=== PATIENT | male | born 1965 ===

== ENCOUNTER 2023-01-09 09:25 | Emergency (ER) | payer BC, SELFPAY ==
--- NOTE | 2023-01-09 | ECG_ITS ---
Test Reason : chest tightness Blood Pressure : / mmHG Vent. Rate : 083 BPM Atrial Rate : 083 BPM P-R Int : 152 ms QRS Dur : 096 ms QT Int : 386 ms P-R-T Axes : -01 -34 -02 degrees QTc Int : 453 ms Normal sinus rhythm Left axis deviation Abnormal ECG No previous ECGs available Referred By: Generic ED Physician Electronically Signed By:ANNIKA SUGGS
[2023-01-09 09:31] VITALS: BP 171/109; PULSE 80; RESP 20; TEMP 35.9; O2SAT 100; BMI 28.6
[2023-01-09 10:02] LABS: MANUAL DIFF FLAG NO
[2023-01-09 10:04] LABS: Basophils Percent Auto 0.4 % (0-2); Eosinophils Percent Auto 0.6 % (0-4); Hemoglobin 16.6 g/dl (14.0-18.0); Imm Gran Abs Auto 0.03 X10*3/uL (0.00-0.03); Imm Gran Pct Auto 0.4 % (0.0-0.4); Lymphocytes Absolute Auto 1.8 X10*3/uL (1.2-4.9); Lymphocytes Percent Auto 26.1 % (20-40); Mean Corpuscular HGB Conc 36.9 g/dl (31.0-36.0); Mean Corpuscular Hemoglobin 33.7 pg (27.0-33.0); Mean Corpuscular Volume 91.3 fL (80.0-98.0); Mean Platelet Volume 10.2 fL (9.4-12.4); Monocytes Absolute Auto 0.5 X10*3/uL (0.1-1.2); Monocytes Percent Auto 7.4 % (2-11); Neutrophils Absolute Auto 4.6 x10*3/uL (2.0-8.3); Neutrophils Percent Auto 65.1 % (45-73); Platelet Count 159 X10*3/uL (160-400); Red Blood Count 4.93 X10*6/uL (4.60-5.80); Red Cell Distribution Width 11.6 % (11.0-16.0); White Blood Count 7.1 X10*3/uL (4.8-10.8)
--- OUTSIDE RECORDS SUMMARY | 2023-01-09 10:17 | XMS_ITS ---
Author Name Jani Turner e Address [address] [place] [address] [place] [address] Organization [facility] Address [address] [address] Care Team Providers Care Mold Blower Name Role Phone Lillian Turner Unavailable [phone] PROBLEMS Type Condition ICD9-CM Code YTQ38-XQ Code Onset Dates Condition Status SNOMED Code Problem Anogenital herpesviral infection, unspecified A60.9 Active 079834596 Problem Pure hyperglyceridemia E78.1 Active 976177584 Problem Abnormal results of liver function studies R94.5 Active 176379861 Problem Diseases of lips K13.0 Active 3835084 9 Problem Raynaud's disease without gangrene I73.00 Active 844591688 Problem Polymyalgia M35.3 Active 97832613 Problem Hyperlipidemia, unspecified E78.5 Active 04544517 Problem Gastro-esophageal reflux disease without esophagitis K21.9 Active 18688238 5 Problem Other chronic pain G89.29 Active 92739 001 Problem Fusion of spine, lumbar region M43.26 Active 26951320 Problem Family history of coronary artery disease Z82.49 Active 343357093 Problem Mixed hyperlipidemia E78.2 Active 267 593185 Problem Essential hypertension I10 Active 08920872 Problem 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 Active 611358984 Problem Hypertriglyceridemia , essential 272.1 Active 621966317 Problem Palpitation 785.1 Active 22179581 Problem Shoulder pain 719.41 Active 07249125 Problem Allergic rhinitis, unspecified seasonality, unspecified trigger J30.9 Active 78635178 Problem Pancreatic cyst K86.2 Active 89951761 Problem Facial paresthesia R20.2 Active 18454 007 Problem High risk heterosexual behavior Z72.51 Active 275639392584290 Problem Dorsalgia, unspecified M54.9 Active 823918415 Problem Acute right-sided low back pain with right-sided sciatica M54.41 Active 3626105 5 Problem Fluttering sensation of heart R00.2 Active 24813878 Problem Diverticulitis K57.92 Active 63211335 Problem Diverticulitis of large intestine without perforation or abscess without bleeding K57.32 Active 750756147 ALLERGIES No Known Allergies ENCOUNTERS Encounter Location Date Diagnosis [facility] [address] [place] [address] 08 Nov, 2022 High risk homosexual behavior Z72.52 [facility] [address] [place] [place] [address] November, High risk homosexual behavior Z72.[address] [address] Oct, Facial paresthesia R20.2 and Allergic rhinitis, unspecified seasonality, unspecified trigger J30.9 [facility] [place] [address] Sep, [facility] [address] [place] [address] Sep, Other chest pain R07.89 ; Essential hypertension I10 ; Family history of coronary artery disease Z82.49 ; Mixed hyperlipidemia E78.2 ; Fluttering sensation of heart R00.2 ; Palpitation R00.2 and Lightheaded R42 [facility] [address] [place] [address] Sep, [address] [address] Sep, [address] [address] Sep, [address] [address] Aug, [facility] [address] [place] [place] [address] May, [facility] [address] [place] [place] [address] May,2 High risk homosexual behavior Z72.52 [facility] [address] [place] [address] 28 Apr, 2022 Pure hyperglyceridemia E78.1 [facility] [address] [place] [address] 27 Apr, 2022 [facility] [address] [place] [address] 24 Apr, [address] [address] 20 Apr, [address] [address] 13 Apr, 2022 Encounter for immunization Z23 and Diverticulitis of large intestine without perforation or abscess without bleeding K57.32 [facility] [address] [place] [address] Mar, Other chest pain R07.89 ; Essential hypertension I10 ; Family history of coronary artery disease Z82.49 ; Mixed hyperlipidemia E78.2 ; Fluttering sensation of heart R00.2 and Palpitation R00.[address] [address] 20 Dec, [address] [address] 03 Dec, [address] [address] November, Acute right-sided low back pain with right-sided sciatica M54.41 and Fusion of spine, lumbar region M43.[address] [address] November, [address] [address] November, [address] [address] November, [address] [address] 26 Oct, 2021 Fusion of spine, lumbar region M43.26 [facility] [address] [place] [place] [address] Oct, [facility] [address] [place] [address] Oct, [facility] [address] [place] [place] [address] 22 Oct, 2021 [facility] [address] [place] [place] [address] 07 Sep, 2021 [facility] [address] [place] [place] [address] 07 Sep, 2021 [facility] [address] [place] [place] [address] 07 Sep, 2021 High risk homosexual behavior Z72.52 [facility] [address] [place] [place] [address] Sep, High risk heterosexual behavior Z72.[address] [address] 23 Jun, [address] [address] 10 Jun, [address] [address] 06 Jun, [address] [address] 16 May, 2021 Injury of right shoulder, initial encounter S49.91XA ; Acute pain of right shoulder M25.511 and Encounter for immunization Z23 [address] [address] 15 May, 2021 Injury of right shoulder, initial encounter S49.91XA [facility] [address] [place] [place] [address] 13 Mar, 2021 [facility] [address] [place] [place] [address] [place] [address] 09 Mar, 2021 [facility] [address] [place] [address] 09 Mar, 2021 High risk homosexual behavior Z72.[address] [address] 20 Feb, 2021 Head congestion R09.81 and Body aches R52 [address] [address] Feb, [facility] [address] [place] [address] 18 Dec, 2020 Other chest pain R07.89 ; Essential hypertension I10 ; Family history of coronary artery disease Z82.49 and Mixed hyperlipidemia E78.[address] [facility] [address] [place] [address] [place] [address] 30 Oct, [address] [facility] [address] [place] [address] Oct, [facility] [address] [place] [place] [address] 29 Oct, 2020 High risk homosexual behavior Z72.52 [facility] [address] [place] [place] [address] 26 Oct, [address] [address] Oct, [facility] [address] [place] [address] 08 Oct, [address] [address] 03 Oct, 2020 Acute bronchitis, unspecified organism J20.[address] [address] 02 Sep, 2020 Polyarthralgia M25.50 ; Raynaud's disease without gangrene I73.00 ; Dry mouth R68.2 and Polymyalgia M35.[address] [address] Aug, [address] [address] 28 Jul, 2020 Polyarthralgia M25.50 and Mixed hyperlipidemia E78.[address] [address] 25 Jul, [address] [facility] [address] [place] [place] [address] 14 Jul, [address] [facility] [address] [place] [address] 14 Jul, 2020 High risk homosexual behavior Z72.52 [facility] [address] [place] [place] [address] 08 Jul, [address] [facility] [address] [place] [place] [address] 08 Jul, [address] [facility] [address] [place] [place] [address] 08 Jul, 2020 [facility] [address] [place] [place] [address] 06 Jul, [address] [address] Jun, Polyarthralgia M25.50 ; Pain in axilla, unspecified laterality M79.629 ; Gastro-esophageal reflux disease without esophagitis K21.9 and Dorsalgia, unspecified M54.9 [facility] [address] [place] [address] Jun, Other chest pain R07.89 ; Essential hypertension I10 ; Family history of coronary artery disease Z82.49 and Mixed hyperlipidemia E78.[address] [address] Jun, Diarrhea, unspecified type R19.7 [facility] [address] [place] Mar, [facility] [address] [place] Mar, [address] [address] Mar, Sore throat J02.9 and Acute nonintractable headache, unspecified headache type R51 [address] [address] Feb, Routine medical exam Z00.00 ; Screening for malignant neoplasm of prostate Z12.5 ; Gastro-esophageal reflux disease without esophagitis K21.9 ; Mixed hyperlipidemia E78.2 ; Family history of coronary artery disease Z82.49 and High risk heterosexual behavior Z72.51 [facility] [address] [place] [address] Dec, Other chest pain R07.89 ; Essential hypertension I10 ; Family history of coronary artery disease Z82.49 and Mixed hyperlipidemia E78.[address] [facility] [address] [place] [place] [address] Dec, [facility] [address] [place] [place] [address] November, Internal [address] [place] [address] November, High risk homosexual behavior Z72.52 [facility] [address] [place] [place] [address] Oct, High risk homosexual behavior Z72.[address] [place] [address] Aug, [address] [place] [address] Apr, [facility] [address] [place] [place] [address] Apr, [facility] [address] [place] [place] [address] Apr, High risk homosexual behavior Z72.52 [facility] [address] [place] [place] [address] Mar, [facility] [address] [place] [address] Mar, [facility] [address] [place] [address] Feb, Essential hypertension I10 ; Family history of coronary artery disease Z82.49 and Mixed hyperlipidemia E78.[address] [address] Oct, [facility] [address] [place] [place] [address] Oct, High risk homosexual behavior Z72.[address] [address] Oct, Routine medical exam Z00.00 ; Screening for malignant neoplasm of prostate Z12.5 ; Essential hypertension I10 ; Mixed hyperlipidemia E78.2 ; Abnormal results of liver function studies R94.5 ; Gastro-esophageal reflux disease without esophagitis K21.9 and Acute bronchitis, unspecified organism J20.[address] [address] Sep, Acute bronchitis, unspecified organism J20.9 and Upper respiratory tract infection, unspecified type J06.[address] [address] Sep, Fever, unspecified fever cause R50.[address] [address] Jul, [facility] [address] [place] [address] Apr, [address] [address] Apr, [facility] [address] [place] [place] [address] Apr, High risk homosexual behavior Z72.[address] [address] Apr, Dorsalgia, unspecified M54.9 ; Essential hypertension I10 ; Mixed hyperlipidemia E78.2 and Left lower quadrant pain R10.32 [facility] [address] [facility] [place] [address] Apr, [address] [address] Mar, [facility] [address] [place] [address] Feb, Essential hypertension I10 ; Family history of coronary artery disease Z82.49 and Mixed hyperlipidemia E78.2 [facility] [address] [place] [place] [address] Feb, [address] [address] Feb, [address] [address] Feb, [address] [address] Feb, [facility] [address] [place] [place] [address] Oct, High risk homosexual behavior Z72.[address] [address] Jun, [address] [address] Apr, [facility] [address] [place] [address] Apr, [facility] [address] [place] [place] [address] Apr, [facility] [address] [place] [address] Apr, [facility] [address] [place] [place] [address] Apr, [facility] [place] [address] Feb, [address] [address] November, [facility] [address] [place] [address] Oct, [place] [address] Oct, [facility] [address] [place] [address] Oct, [facility] [address] [address] Aug, [facility] [address] [place] [address] Jun, [facility] [address] [facility] [place] [address] Jun, [address] [address] May, [facility] [address] [address] Apr, [facility] [address] [place] [address] Apr, [address] [address] Apr, [address] [address] Feb, [address] [address] Jan, [facility] [address] [address] Oct, [facility] [address] [address] Sep, [address] [address] Aug, [facility] [place] [address] Aug, [facility] [address] [address] May, [facility] [address] [place] [address] Apr, [address] [address] Apr, [facility] [address] [place] [address] Feb, [facility] [address] [address] Jan, [address] [address] Oct, [facility] [address] [place] [address] Oct, [facility] UNKNOWN Sep, [address] [address] Sep, [facility] UNKNOWN Jul, [facility] UNKNOWN Jul, UR I 465.9 and Wheezing 786.07 [facility] UNKNOWN Jul, [facility] UNKNOWN Jun, [facility] UNKNOWN Jun, AB DMNAL PAIN LFT UP QUAD 789.02 [facility] UNKNOWN Jun, Sh oulder pain 719.41 ; Palpitation 785.1 ; Hypertriglyceridemia, essential 272.1 ; ELEV TRANSAMINASE/LDH 790.4 and Venous lakes 437.8 [facility] UNKNOWN May, IMMUNIZATIONS Vaccine Route Administration Date Status Pfizer Covid Booster Bivalent (12+) Unknown May 262021 Administered Influenza (FluLaval) 0.5 mL (Private supply) IM Intramuscular May 05, 2022 Administered Influenza (FluLaval) 0.5 mL (Private supply) IM Intramuscular Jun 08, 2021 Administered Influenza, unspecified formu lation (Outside source) Unknown May 04, 2018 Administered Tdap Unknown September 22, 2022 Administered Tdap Unknown November 18, 2014 Administered SOCIAL HISTORY Qualifiers Date Former Smoker 33 REASON FOR REFERRAL FUNCTIONAL STATUS PLAN OF CARE Activity Details VITAL SIGNS Temperature 97.7 degrees Fahrenheit Temperature 97.6 degrees Fahrenheit Temperature 98.4 degrees Fahrenheit Temperature 98.8 degrees Fahrenheit Temperature 97.6 degrees Fahrenheit Temperature 97.9 degrees Fahrenheit Temperature 97.6 degrees Fahrenheit Temperature 98.7 degrees Fahrenheit Temperature 97.5 degrees Fahrenheit Temperature 97.8 degrees Fahrenheit Heart Rate 62 /min 2022-11-28 Heart Rate 70 /min 2022-11-17 Heart Rate 60 /min 2022-09-29 Heart Rate 72 /min 2022-09-21 Heart Rate 70 /min 2022-05-30 Heart Rate 64 /min 2022-05-05 Heart Rate 70 /min 2022-04-15 Heart Rate 67 /min 2021-12-21 Heart Rate 58 /min 2021-09-27 Heart Rate 62 /min 2021-06-08 Heart Rate 68 /min 2021-01-08 Heart Rate 66 /min 2020-09-22 Heart Rate 78 /min 2020-08-20 Heart Rate 80 /min 2020-07-14 Heart Rate 64 /min 2020-07-10 Heart Rate 60 /min 2020-03-10 Heart Rate 82 /min 2019-05-16 Heart Rate 64 /min 2019-03-08 Heart Rate 60 /min 2018-11-12 Heart Rate 60 /min 2018-11-12 Heart Rate 77 /min 2018-10-19 Heart Rate 76 /min 2018-10-17 Heart Rate 66 /min 2018-05-17 Heart Rate 70 /min 2018-05-14 Heart Rate 66 /min 2018-03-21 Heart Rate 64 /min 2016-11-25 Heart Rate 59 /min 2016-10-31 Heart Rate 67 /min 2016-10-27 Heart Rate 68 /min 2016-05-27 Heart Rate 58 /min 2016-05-09 Heart Rate 64 /min 2016-05-06 Heart Rate 80 /min 2016-03-11 Heart Rate 64 /min 2016-02-02 Heart Rate 63 /min 2015-11-19 Heart Rate 63 /min 2015-09-22 Heart Rate 61 /min 2015-09-11 Heart Rate 57 /min 2015-05-28 Heart Rate 70 /min 2015-05-11 Heart Rate 72 /min 2015-05-11 Heart Rate 86 /min 2015-03-06 Heart Rate 61 /min 2015-02-05 Heart Rate 60 /min 2014-11-18 Heart Rate 76 /min 2014-10-17 Weight 209 lbs 2022-11-28 Weight 211 lbs 2022-11-17 Weight 212 lbs 2022-09-29 Weight 207 lbs 2022-05-30 Weight 209 lbs 2022-05-05 Weight 213 lbs 2022-04-15 Weight 211 lbs 2021-12-21 Weight 205 lbs 2021-09-27 Weight 204 lbs 2021-06-08 Weight 209 lbs 2021-01-08 Weight 214 lbs 2020-09-22 Weight 217 lbs 2020-08-20 Weight 217 lbs 2020-07-14 Weight 218 lbs 2020-07-10 Weight 205 lbs 2020-03-10 Weight 206 lbs 2020-01-08 Weight 207 lbs 2019-05-16 Weight 202 lb 2 oz lbs 2019-03-08 Weight 208 lbs 2018-11-12 Weight 208 lbs 2018-11-12 Weight 204 lbs 2018-10-19 Weight 214 lbs 2018-05-17 Weight 214 lbs 2018-05-14 Weight 206 lbs 2018-03-21 Weight 205 lbs 2016-11-25 Weight 208 lbs 2016-10-31 Weight 198.03 lbs 2016-10-27 Weight 208 lbs 2016-05-27 Weight 208.03 lbs 2016-05-09 Weight 209 lbs 2016-05-06 Weight 205 lbs 2016-03-11 Weight 201 lbs 2016-02-02 Weight 203 lbs 2015-11-19 Weight 198 lbs 2015-09-22 Weight 203 lbs 2015-09-11 Weight 206 lbs 2015-05-28 Weight 204.03 lbs 2015-05-11 Weight 204 lbs 2015-05-11 Weight 203.03 lbs 2015-03-06 Weight 203 lbs 2015-02-05 Weight 203 lbs 2014-11-18 Weight 201 lbs 2014-10-17 Weight 202 lbs 2014-06-23 BMI 29.56 kg/m2 2022-11-28 BMI 29.84 kg/m2 2022-11-17 BMI 29.99 kg/m2 2022-09-29 BMI 29.28 kg/m2 2022-05-30 BMI 29.56 kg/m2 2022-05-05 BMI 30.13 kg/m2 2022-04-15 BMI 29.84 kg/m2 2021-12-21 BMI 28.85 kg/m2 2021-06-08 BMI 29.56 kg/m2 2021-01-08 BMI 30.27 kg/m2 2020-09-22 BMI 30.69 kg/m2 2020-08-20 BMI 30.69 kg/m2 2020-07-14 BMI 30.83 kg/m2 2020-07-10 BMI 29.00 kg/m2 2020-03-10 BMI 29.14 kg/m2 2020-01-08 BMI 29.28 kg/m2 2019-05-16 BMI 28.59 kg/m2 2019-03-08 BMI 29.42 kg/m2 2018-11-12 BMI 29.42 kg/m2 2018-11-12 BMI 28.85 kg/m2 2018-10-19 BMI 30.27 kg/m2 2018-05-17 BMI 30.27 kg/m2 2018-05-14 BMI 29.14 kg/m2 2018-03-21 Height 70.5 in 2022-11-28 Height 70.5 in 2022-11-17 Height 70.5 in 2022-09-29 Height 70.5 in 2022-09-21 Height 70.5 in 2022-05-30 Height 70.5 in 2022-05-05 Height 70.5 in 2022-04-15 Height 70.5, 70.5 in 2021-12-21 Height 70.5, 70.5 in 2021-09-27 Height 70.5 in 2021-06-08 Height 70.5 in 2021-01-08 Height 70.5 in 2020-09-22 Height 70.5 in 2020-08-20 Height 70.5 in 2020-07-14 Height 70.5 in 2020-07-10 Height 70.5 in 2020-03-10 Height 70.5 in 2020-01-08 Height 70.5 in 2019-05-16 Height 70.5 in 2019-03-08 Height 70.5 in 2018-11-12 Height 70.5 in 2018-11-12 Height 70.5 in 2018-10-19 Height 70.5 in 2018-10-17 Height 70.5 in 2018-05-17 Height 70.5 in 2018-05-14 Height 70.5 in 2018-03-21 Height 70.5 in 2016-11-25 Height 70.5 in 2016-10-31 Height 71.000 in 2016-10-27 Height 70.5 in 2016-05-27 Height 71.000 in 2016-05-09 Height 70.5 in 2016-05-06 Height 70.5 in 2016-03-11 Height 70.5 in 2016-02-02 Height 70.5 in 2015-11-19 Height 70.5 in 2015-09-22 Height 70.5 in 2015-09-11 Height 70 in 2015-05-28 Height 70 in 2015-05-11 Height 71.000 in 2015-03-06 Height 70 in 2015-02-05 Height 70 in 2014-11-18 Height 70.25 in 2014-10-17 Respiratory Rate 16 /min 2018-10-19 Oximetry 98 % 2022-11-28 Oximetry 99 % 2022-11-17 Oximetry 97 % 2022-05-30 Oximetry 98 % 2022-05-05 Oximetry 98 % 2021-12-21 Oximetry 98 % 2021-09-27 Oximetry 99 % 2021-06-08 Oximetry 100 % 2020-09-22 Oximetry 99 % 2020-08-20 Oximetry 99 % 2020-07-14 Oximetry 97 % 2020-03-10 Oximetry 97 % 2018-11-12 Oximetry 97 % 2018-10-19 Oximetry 97 % 2018-10-17 Oximetry 100 % 2018-05-14 Oximetry 99 % 2015-05-28 Blood pressure systolic 110 mm Hg Blood pressure diastolic 80 mm Hg 2022-11 MEDICATIONS Medication Instructions Dosage Frequency Start Date End Date Duration Status Emtricitabine-Te nofovir DF 200-300 MG TAKE 1 TABLET BY MOUTH ONCE DAILY 90 Active valACYclovir HCl 500 MG Orally Once a day 1 tablet 24h 30 Active Multivitamin Act adiel Atorvastatin Calcium 20 MG Orally Once a day 1 tablet 24h Apr, 90 days Active Losartan Potassium 25 MG Orally Once a day 1 tablet 24h 09 Sep, 2022 30 day(s) Active Fish Oil 1000 MG Orally Once a day 1 capsule 24h 30 day(s) Active tiZANidine HCl 4 MG Orally Once a day 1 tablet as needed 24h Active Omeprazole 40 MG TAKE ONE CAPSULE BY MOUTH ONCE DAILY 90 Active PROCEDURES Procedure Date Ordered Result Body Site FLU VAC NO PRSV 4 LAURITA .5ML May 05, 2022 FLU VAC NO PRSV 4 LAURITA .5ML Jun 08, 2021 INFLUENZA ASSAY W/OPTIC October 17, 2018 RESULTS Name Result Date Reference Range Chlamydia-GC swab RNA, TMA, Rectal 2022-11-21 Chlamydia-GC swab RNA, TMA, Throat 2022-11-21 Surgical Pathology Order Rcvd 2022-11-21 Case Number path Final Report See Reference Report Path Report Comment This is not the diag nostic report, please see separate Pathology Report. Report To Chlamydia/Gonorrhea Only (No Pap) 2022-11-21 Gonorrhea/Chlamydia Results: Neisseria gonorrhoeae not detected Chlamydia trachomatis not detected [id number] ICD9 Codes: CPT Codes: 05668i8, 47154m1 Thyroid Stimulating Hormone w/Reflex 2022-11-17 TSH 3.040 0.500-4.70 CRP (C-Reactive Protein) 2022-11-10 CRP 6.2 <=10.0 Sedimentation Rate 2022-11-10 ESR 5 <=20 Test Site [place] [facility] MRI BRAIN WO and W/BRO [id number] 2022-11-10 Urinalysis, Routine 2022-11-09 Color Yellow Clarity Clear Glucose Negative NEGATIVE Bilirubin Negative NEGATIVE Ictotest Not Indicated NEGATIVE Ketones Negative NEGATIVE SG 1.010 1.001-1.03 pH 7.5 4.6-8.0 Protein Negative NEGATIVE Urobil. 0.2 0.2-1.0 Nitrite Negative NEGATIVE Blood Negative NEGATIVE Leukocytes Negative NEGATIVE UA/Micro N/I N/I Color Inf. NO NO Test [facility] Anaplasma DNA, Qual. Real-Ti me PCR 2022-11-09 A.phagocytophilum,DNA,PCR Not Detected No t Detect Babesia microti DNA, Real-Ti me PCR 2022-11-09 Babesia microti DNA,PCR Not Detected Not Detect Blood Parasite Smear Examination 2022-11-09 BP Smear NONE SEEN NONE SEEN Parasite ID: None Seen Interp. INTERPRETATION of th e RESULT ABOVE None Seen: No Blood Parasites Seen Parasite Seen: Presumptive parasite seen, sent for confirmation & identification Confirm: Preliminary results confirmed by 2nd technologist. % Parasitemia BP Interpretation Babesia microti (RBC parasite), Anaplasma phagocytophilum & Ehrlichia chaffeensis (intracellular bacteria). Parasites may not be seen in an early course of the disease. PCR testing is available. Test Site [place] [facility] CBC AUTO DIFF (REFLEX TO MANUAL) 2022-11-09 WBC 5.61 4.80-10.80 RBC 4.44 4.60-6.20 HGB 15.0 14.0-18.0 HCT 41.4 42.0-52.0 MCV 93.2 80.0-94.0 MCH 33.8 27.0-31.0 MCHC 36.2 32.0-36.0 PLT 144.0 150.0-450. RDW-CV 11.9 9.9-14.5 ABS NEUT 3.6 1.8-8.6 ABS LYMPH 1.6 0.5-5.4 ABS MONO 0.4 0.0-1.3 ABS EOS 0.0 0.0-0.8 ABS BASO 0.0 0.0-0.3 ABS IG 0.00-0.10 NEUT % 64.20 37.00-80.0 LYMPH % 27.80 10.00-50.0 MONO % 7.10 0.01-12.00 EOS % 0.70 0.01-7.00 BASO % 0.20 0.01-2.50 IG% 0.0-1.0 RBC Morph. NORMAL RBC Incl. WBC Morph NORMAL PLT Est. NORMAL PLT Morph NORMAL Test Site [facility] Comprehensive Metabolic Panel(CMP) 2022-11-09 Glucose 101 65-100 BUN 13 7-23 Creatinine 0.80 0.66-1.25 BUN/Creat 16.3 7.0-25.0 Sodium 137 137-145 Potassium 4.3 3.6-5.0 Chloride 101 98-107 CO2 30 22-30 Anion Gap 6.0 5.0-15.0 Calcium 8.7 8.4-10.6 Tot.Prot. 6.8 6.3-8.2 Albumin 4.5 2.6-5.2 A/G Ratio 2.0 1.1-1.8 Alk Phos 70 38-126 AST 40 15-40 ALT 53 <=49 Bilirubin 1.1 0.2-1.3 eGFR >=60 >=60 Comment The MDRD study equat ion has not been validated in children < 18 yrs and pts. If , multiply result by 1.21. Test Site [place] [facility] Lyme -B.Burgdorferi Ab Rflx To Wb 2022-11-09 Lyme Ab Screen <0.90 SEE BELOW POC Glucose, Random 2022-11-09 Glucose 99 65-100 Prothrombin Time (with INR) 2022-11-09 PT 12.8 11.6-14.6 INR 0.95 0.85-1.15 PT INR Ther ACCP, 2004 Recommend ations for oral anticoagulant therapy: Low Intensity 1.50 - 2.00 INR Mod Intensity 2.00 - 3.00 INR High Intensity 2.50 - 3.50 INR or High Intensity 3.00 - 4.00 INR Test Site [place] [facility] Partial Thromboplastin Time (aPTT) 2022-11-09 aPTT 30.7 23.5-35.4 PTT Interp aPTT therapeutic ran for monitoring patients on unfractionated Heparin: aPTT 66 sec to 104 sec Comment In children between the ages of 2 and 18, a PTT may be elevated for reasons other than coagulopathy. Test Site [place] [facility] Troponin I 2022-11-09 Trop. I <0.012 <=0.034 Ref. Range Normal < 0.034 ng/ml Diagnostic >= 0.120 ng/ml Test Site [facility] MRI BRAIN W/O BRO [id number] 2022-11-09 CHEST PA AND LAT (2) VIEWS [id number] 2022-11-[address] [facility] STROKE PART 2: CTA HEAD/NECK [id number], [id number] 2022-11-[address] [facility] STROKE PART 1: PRE-ANGIO HEAD CT 2022-11-09 LDL Direct ([facility]) 2022-10-21 Direct LDL 56 SEE BELOW CBC AUTO DIFF (REFLEX TO MANUAL) 2022-10-21 WBC 4.15 4.80-10.80 RBC 4.48 4.60-6.20 HGB 14.8 14.0-18.0 HCT 41.9 42.0-52.0 MCV 93.5 80.0-94.0 MCH 33.0 27.0-31.0 MCHC 35.3 32.0-36.0 PLT 164.0 150.0-450. RDW-CV 11.9 9.9-14.5 ABS NEUT 2.1 1.8-8.6 ABS LYMPH 1.5 0.5-5.4 ABS MONO 0.5 0.0-1.3 ABS EOS 0.1 0.0-0.8 ABS BASO 0.0 0.0-0.3 ABS IG 0.02 0.00-0.10 NEUT % 50.40 37.00-80.0 LYMPH % 36.40 10.00-50.0 MONO % 11.30 0.01-12.00 EOS % 1.20 0.01-7.00 BASO % 0.20 0.01-2.50 IG% 0.5 0.0-1.0 RBC Morph. NORMAL RBC Incl. WBC Morph NORMAL PLT Est. NORMAL PLT Morph NORMAL Test Site [facility] Comprehensive Metabolic Panel(CMP) 2022-10-21 Glucose 90 65-100 BUN 23 7-23 Creatinine 0.93 0.66-1.25 BUN/Creat 24.7 7.0-25.0 Sodium 140 137-145 Potassium 4.7 3.6-5.0 Chloride 101 98-107 CO2 30 22-30 Anion Gap 9.0 5.0-15.0 Calcium 9.1 8.4-10.6 Tot.Prot. 7.0 6.3-8.2 Albumin 4.6 2.6-5.2 A/G Ratio 1.9 1.1-1.8 Alk Phos 69 38-126 AST 38 15-40 ALT 50 <=49 Bilirubin 1.0 0.2-1.3 eGFR >=60 >=60 Comment The MDRD study equat ion has not been validated in children < 18 yrs and pts. If , multiply result by 1.21. Test [facility] HIV 1/2 Antigen/Antibody, 4t h Generation with Reflexes 2022-10-21 HIV Ag/Ab, 4th Generation Nonreactive No nreactiv RPR ([facility]) 2022-10-21 RPR Non-Reactive Non-Reacti Hepatitis C Virus Ab (AHCV) 2022-10-21 HCV NEGATIVE NEGATIVE Chlamydia, N. Gonorrhoeae (Aptima) Urine 2022-10-21 Chlamydia Trachomatis RNA,TMA Not Detected Not Detect Neisseria Gonorrhoeae RNA, TMA Not Detected Not Detect Lipid Profile 2022-10-21 Cholestero 147 <=200 Trig. 328 <=150 HDL 30 >=40 LDL 51.4 <=130.0 Card.Risk 4.90 <=4.97 Rel.Risk 0.99 <=1.00 Interpretation Reference Range abov e is optimal for patients with minimal risk factors. The target ranges for patients of higher risk may vary. Test Site [facility] CBC AUTO DIFF (REFLEX TO MANUAL) 2022-09-21 WBC 5.93 4.80-10.80 RBC 4.61 4.60-6.20 HGB 15.3 14.0-18.0 HCT 43.1 42.0-52.0 MCV 93.5 80.0-94.0 MCH 33.2 27.0-31.0 MCHC 35.5 32.0-36.0 PLT 193.0 150.0-450. RDW-CV 11.9 9.9-14.5 ABS NEUT 3.5 1.8-8.6 ABS LYMPH 1.8 0.5-5.4 ABS MONO 0.5 0.0-1.3 ABS EOS 0.1 0.0-0.8 ABS BASO 0.0 0.0-0.3 ABS IG 0.08 0.00-0.10 NEUT % 59.20 37.00-80.0 LYMPH % 30.20 10.00-50.0 MONO % 8.10 0.01-12.00 EOS % 1.00 0.01-7.00 BASO % 0.20 0.01-2.50 IG% 1.3 0.0-1.0 RBC Morph. NORMAL RBC Incl. WBC Morph NORMAL PLT Est. NORMAL PLT Morph NORMAL Test Site [facility] Comprehensive Metabolic Panel(CMP) 2022-09-21 Glucose 96 65-100 BUN 19 7-23 Creatinine 0.84 0.66-1.25 BUN/Creat 22.6 7.0-25.0 Sodium 137 137-145 Potassium 4.4 3.6-5.0 Chloride 96 98-107 CO2 33 22-30 Anion Gap 8.0 5.0-15.0 Calcium 9.2 8.4-10.6 Tot.Prot. 7.3 6.3-8.2 Albumin 4.6 2.6-5.2 A/G Ratio 1.7 1.1-1.8 Alk Phos 80 38-126 AST 40 15-40 ALT 70 <=49 Bilirubin 1.1 0.2-1.3 eGFR >=60 >=60 Comment The MDRD study equat ion has not been validated in children < 18 yrs and pts. If , multiply result by 1.21. Test Site [facility] HIV 1/2 Antigen/Antibody, 4t h Generation with Reflexes 2022-09-21 HIV Ag/Ab, 4th Generation Nonreactive No nreactiv KNEE-LEFT AP/LAT/SHANIKA (3)VIEW S [id number] 2022-06-26 HIV 1/2 Antigen/Antibody, 4t h Generation with Reflexes 2022-05-05 HIV Ag/Ab, 4th Generation Non-reactive No n-reacti Lipid Profile RESULTS ONLY 2022-05-05 Cholestero 157 <=200 Trig. 464 <=150 HDL 26 >=40 Interpretation Equations used for d erived tests are not appropriate for specimens in which the triglyceride concentrations are greater than 400 mg/dl or the calculation produces a negative LDL result.. A physician request for Direct LDL testing may be indicated. Interpretation Reference Range abov e is optimal for patients with minimal risk factors. The target ranges for patients of higher risk may vary. Test Site [facility] CBC AUTO DIFF (REFLEX TO MANUAL) 2022-04-25 WBC 10.09 4.80-10.80 RBC 4.58 4.60-6.20 HGB 15.2 14.0-18.0 HCT 43.1 42.0-52.0 MCV 94.1 80.0-94.0 MCH 33.2 27.0-31.0 MCHC 35.3 32.0-36.0 PLT 138.0 150.0-450. RDW-CV 12.1 9.9-14.5 ABS NEUT 8.1 1.8-8.6 ABS LYMPH 1.0 0.5-5.4 ABS MONO 0.9 0.0-1.3 ABS EOS 0.1 0.0-0.8 ABS BASO 0.0 0.0-0.3 ABS IG 0.03 0.00-0.10 NEUT % 80.50 37.00-80.0 LYMPH % 9.80 10.00-50.0 MONO % 8.80 0.01-12.00 EOS % 0.50 0.01-7.00 BASO % 0.10 0.01-2.50 IG% 0.3 0.0-1.0 RBC Morph. NORMAL RBC Incl. WBC Morph NORMAL PLT Est. NORMAL PLT Morph NORMAL Test Site [facility] Comprehensive Metabolic Panel(CMP) 2022-04-25 Glucose 109 65-100 BUN 15 7-23 Creatinine 0.98 0.66-1.25 BUN/Creat 15.3 7.0-25.0 Sodium 138 137-145 Potassium 4.2 3.6-5.0 Chloride 100 98-107 CO2 28 22-30 Anion Gap 10.0 5.0-15.0 Calcium 9.3 8.4-10.6 Tot.Prot. 7.2 6.3-8.2 Albumin 4.7 2.6-5.2 A/G Ratio 1.9 1.1-1.8 Alk Phos 99 38-126 AST 29 15-40 ALT 54 <=49 Bilirubin 2.7 0.2-1.3 eGFR >=60 >=60 Comment The MDRD study equat ion has not been validated in children < 18 yrs and pts. If , multiply result by 1.21. Test Site [facility] Lactic Acid 2022-04-25 Lactate 0.80 0.70-2.00 Test Site [facility] Lipase, Serum 2022-04-25 Lipase 78 23-300 Test [facility] Urinalysis W/Micro 2022-04-25 Color Yellow Clarity Clear Glucose Negative NEGATIVE Bilirubin Negative NEGATIVE Ictotest Not Indicated NEGATIVE Ketones Negative NEGATIVE SG 1.015 1.001-1.03 pH 6.5 4.6-8.0 Protein Negative NEGATIVE Urobil. 0.2 0.2-1.0 Blood Trace NEGATIVE Nitrite Negative NEGATIVE Leukocytes Negative NEGATIVE WBC None Seen 0-5/HPF RBC None Seen 0-3/HPF Bacteria Occasional (0-15/HPF) FEW Yeast None Seen NONE SEEN Casts None Seen Crystals None Seen Epi Cells See Comments Renal Epi None Seen 0-1/HPF Mucus Trace UR Culture N/I N/I Test [facility] Blood Culture 2022-04-25 CT ABDOMEN AND PELVIS W/CON [id number] 2022-04-25 Blood Culture 2022-04-25 Zio Patch 2022-04-24 Lipoprotein (Little A) 2022-05-05 Lipoprotein (a) 19 SEE BELOW CRP, High Sensitivity 2022-05-05 HsCRP 1.48 <=3.00 Interpretation AHA/CDC Guidelines f or interpretation: LOW risk <1.0 AVERAGE risk 1.0 - 3.0 HIGH risk 3.1 - 10.0 INDETERMINANT result >10.0 Persistent hsCRP elevations may represent non-cardiovascular inflammation. Comprehensive Metabolic Panel(CMP) 2022-05-05 Glucose 89 65-100 BUN 18 7-23 Creatinine 0.86 0.66-1.25 BUN/Creat 20.9 7.0-25.0 Sodium 135 137-145 Potassium 4.7 3.6-5.0 Chloride 100 98-107 CO2 30 22-30 Anion Gap 5.0 5.0-15.0 Calcium 8.8 8.4-10.6 Tot.Prot. 7.1 6.3-8.2 Albumin 4.7 2.6-5.2 A/G Ratio 2.0 1.1-1.8 Alk Phos 85 38-126 AST 78 15-40 ALT 134 <=49 Bilirubin 0.9 0.2-1.3 eGFR >=60 >=60 Comment The MDRD study equat ion has not been validated in children < 18 yrs and pts. If , multiply result by 1.21. Test Site [facility] MRI LUMBAR SPINE W/O BRO [id number] 2022-01-17 MRI LUMBAR SPINE W/O BRO [id number] 2022-02-14 HIV 1/2 Antibody w/Reflex 2021-09-22 A-HIV 1/2 NEGATIVE NEGATIVE Comprehensive Metabolic Panel(CMP) 2021-09-22 Glucose 105 65-100 BUN 18 7-23 Creatinine 1.11 0.66-1.25 BUN/Creat 16.2 7.0-25.0 Sodium 140 137-145 Potassium 4.3 3.6-5.0 Chloride 104 98-107 CO2 29 22-30 Anion Gap 7.0 5.0-15.0 Calcium 9.1 8.4-10.6 Tot.Prot. 6.8 6.3-8.2 Albumin 4.4 2.6-5.2 A/G Ratio 1.8 1.1-1.8 Alk Phos 107 38-126 AST 55 15-40 ALT 77 <=49 Bilirubin 1.2 0.2-1.3 eGFR >=60 >=60 Comment The MDRD study equat ion has not been validated in children < 18 yrs and pts. If , multiply result by 1.21. Test Site [facility] RPR ([facility]) 2021-09-22 RPR Non-Reactive Non-Reacti Hepatitis C Virus Ab (AHCV) 2021-09-22 HCV NEGATIVE NEGATIVE Chlamydia, N. Gonorrhoeae (Aptima) Urine 2021-09-22 Chlamydia Trachomatis RNA,TMA Not Detected Not Detect Neisseria Gonorrhoeae RNA, TMA Not Detected Not Detect CBC AUTO DIFF (REFLEX TO MANUAL) 2021-09-22 WBC 4.45 4.80-10.80 RBC 4.52 4.60-6.20 HGB 14.7 14.0-18.0 HCT 43.0 42.0-52.0 MCV 95.1 80.0-94.0 MCH 32.5 27.0-31.0 MCHC 34.2 32.0-36.0 PLT 141.0 150.0-450. RDW-CV 12.5 9.9-14.5 ABS NEUT 2.7 1.8-8.6 ABS LYMPH 1.2 0.5-5.4 ABS MONO 0.5 0.0-1.3 ABS EOS 0.1 0.0-0.8 ABS BASO 0.0 0.0-0.3 ABS IG 0.03 0.00-0.10 NEUT % 61.60 37.00-80.0 LYMPH % 25.80 10.00-50.0 MONO % 10.10 0.01-12.00 EOS % 1.60 0.01-7.00 BASO % 0.20 0.01-2.50 IG% 0.7 0.0-1.0 RBC Morph. NORMAL RBC Incl. WBC Morph NORMAL PLT Est. NORMAL PLT Morph NORMAL Test Site [facility] MRI ABDOMEN WO and W/BRO [id number] 2021-09-22 Surgical Pathology Order Rcvd 2021-09-21 Case Number [id number] Final Report See Reference Report Path Report Comment This is not the diag nostic report, please see separate Pathology Report. Chlamydia/Gonorrhea Only (No Pap) 2021-09-21 Gonorrhea/Chlamydia Results: Neisseria gonorrhoeae not detected Chlamydia trachomatis not detected [id number] ICD9 Codes: CPT Codes: 59331e9, 96990b7 CBC AUTO DIFF (REFLEX TO MANUAL) 2021-08-26 WBC 6.03 4.80-10.80 RBC 4.87 4.60-6.20 HGB 16.0 14.0-18.0 HCT 45.8 42.0-52.0 MCV 94.0 80.0-94.0 MCH 32.9 27.0-31.0 MCHC 34.9 32.0-36.0 PLT 150.0 150.0-450. RDW-CV 12.2 9.9-14.5 ABS NEUT 3.9 1.8-8.6 ABS LYMPH 1.5 0.5-5.4 ABS MONO 0.6 0.0-1.3 ABS EOS 0.0 0.0-0.8 ABS BASO 0.0 0.0-0.3 ABS IG 0.03 0.00-0.10 NEUT % 64.50 37.00-80.0 LYMPH % 24.70 10.00-50.0 MONO % 9.60 0.01-12.00 EOS % 0.50 0.01-7.00 BASO % 0.20 0.01-2.50 IG% 0.5 0.0-1.0 RBC Morph. NORMAL RBC Incl. WBC Morph NORMAL PLT Est. NORMAL PLT Morph NORMAL Test Site [facility] Comprehensive Metabolic Panel(CMP) 2021-08-26 Glucose 104 65-100 BUN 24 7-23 Creatinine 1.01 0.66-1.25 BUN/Creat 23.8 7.0-25.0 Sodium 138 137-145 Potassium 4.7 3.6-5.0 Chloride 97 98-107 CO2 29 22-30 Anion Gap 12.0 5.0-15.0 Calcium 9.6 8.4-10.6 Tot.Prot. 7.8 6.3-8.2 Albumin 5.1 2.6-5.2 A/G Ratio 1.9 1.1-1.8 Alk Phos 104 38-126 AST 39 15-40 ALT 60 <=49 Bilirubin 1.5 0.2-1.3 eGFR >=60 >=60 Comment The MDRD study equat ion has not been validated in children < 18 yrs and pts. If , multiply result by 1.21. Test Site [facility] MRI SHOULDER RT W/O BRO [id number] 2021-06-10 HIV 1/2 Antigen/Antibody, 4t h Generation with Reflexes 2021-03-31 HIV Ag/Ab, 4th Generation Non-reactive No n-reacti Comprehensive Metabolic Panel(CMP) 2021-03-31 Glucose 86 65-100 BUN 19 7-23 Creatinine 0.90 0.66-1.25 BUN/Creat 21.1 7.0-25.0 Sodium 137 137-145 Potassium 4.4 3.6-5.0 Chloride 99 98-107 CO2 32 22-30 Anion Gap 6.0 5.0-15.0 Calcium 9.3 8.4-10.6 Tot.Prot. 7.2 6.3-8.2 Albumin 4.8 2.6-5.2 A/G Ratio 2.0 1.1-1.8 Alk Phos 72 38-126 AST 35 15-40 ALT 47 <=49 Bilirubin 1.3 0.2-1.3 eGFR >=60 >=60 Comment The MDRD study equat ion has not been validated in children < 18 yrs and pts. If , multiply result by 1.21. Test Site [facility] Lipid Profile 2021-02-26 Cholestero 162 <=200 Trig. 207 <=150 HDL 37 >=40 LDL 83.6 <=130.0 Card.Risk 4.38 <=4.97 Rel.Risk 0.88 <=1.00 Interpretation Reference Range abov e is optimal for patients with minimal risk factors. The target ranges for patients of higher risk may vary. Test Site [facility] FOOT-RIGHT AP/LAT/OBL (3) [place] [id number] 2021-01-07 Chlamydia, N. Gonorrhoeae (Aptima) Urine 2020-11-17 Chlamydia Trachomatis RNA,TMA Not Detected Not Detect Neisseria Gonorrhoeae RNA, TMA Not Detected Not Detect CBC AUTO DIFF (REFLEX TO MANUAL) 2020-11-17 WBC 4.50 4.80-10.80 RBC 4.63 4.60-6.20 HGB 15.4 14.0-18.0 HCT 42.7 42.0-52.0 MCV 92.2 80.0-94.0 MCH 33.3 27.0-31.0 MCHC 36.1 32.0-36.0 PLT 155.0 150.0-450. RDW-CV 12.5 9.9-14.5 ABS NEUT 2.3 1.8-8.6 ABS LYMPH 1.7 0.5-5.4 ABS MONO 0.4 0.0-1.3 ABS EOS 0.1 0.0-0.8 ABS BASO 0.0 0.0-0.3 ABS IG 0.03 0.00-0.10 NEUT % 52.00 37.00-80.0 LYMPH % 36.90 10.00-50.0 MONO % 9.10 0.01-12.00 EOS % 1.10 0.01-7.00 BASO % 0.20 0.01-2.50 IG% 0.7 0.0-1.0 RBC Morph. NORMAL RBC Incl. WBC Morph NORMAL PLT Est. NORMAL PLT Morph NORMAL Test Site [facility] Comprehensive Metabolic Panel(CMP) 2020-11-17 Glucose 115 65-100 BUN 16 7-23 Creatinine 0.86 0.66-1.25 BUN/Creat 18.6 7.0-25.0 Sodium 138 137-145 Potassium 4.5 3.6-5.0 Chloride 100 98-107 CO2 27 22-30 Anion Gap 11.0 5.0-15.0 Calcium 9.0 8.4-10.6 Tot.Prot. 6.7 6.3-8.2 Albumin 4.2 2.6-5.2 A/G Ratio 1.7 1.1-1.8 Alk Phos 87 38-126 AST 35 15-40 ALT 45 <=49 Bilirubin 0.8 0.2-1.3 eGFR >=60 >=60 Comment The MDRD study equat ion has not been validated in children < 18 yrs and pts. If , multiply result by 1.21. Test [facility] HIV 1/2 Antigen/Antibody, 4t h Generation with Reflexes 2020-11-17 HIV Ag/Ab, 4th Generation Non-reactive No n-reacti RPR ([facility]) 2020-11-17 RPR Non-Reactive Non-Reacti Hepatitis C Virus Ab (AHCV) 2020-11-17 HCV NEGATIVE NEGATIVE CRP (C-Reactive Protein) 2020-09-22 CRP <5.0 <=10.0 Sedimentation Rate 2020-09-22 ESR 2 <=20 Test [facility] TYRESE Screen, IFA Sjogren Pane l, reflex to Titer and Pattern 2020-09-22 Interpretation REPORT TYRESE Screen, IFA Positive Negative Sjogren's Antibody (SS-A) <1.0 Sjogren's Antibody (SS-B) <1.0 Rheumatoid Factor <14 SEE BELOW Pattern REPORT Titer 1:40 Negative TYRESE Pattern TNP TYRESE Titer TNP TYRESE Pattern TNP TYRESE Titer TNP Creatinine Phosphokinase (CP K) (CK) 2020-09-22 CK 109 55-170 Test [facility] Aldolase 2020-09-22 Aldolase 5.7 SEE BELOW Anti-DNA Antibody DS 2020-09-22 DNA (ds) Antibody <1 SEE BELOW Antiphospholipid Antibody Panel 2 Interpretation REPORT B2 Glycoprotein I (IgG)Ab <9 SE E BELOW B2 Glycoprotein I (IgA)Ab <9 SE E BELOW B2 Glycoprotein I (IgM)Ab <9 SE E BELOW Phosphatidylserine Ab(IgA) <20 S EE BELOW Phosphatidylserine Ab(IgG) <10 S EE BELOW Phosphatidylserine Ab(IgM) <25 S EE BELOW Cardiolipin Ab IgA <11 SEE BELOW Cardiolipin Ab IgG <14 SEE BELOW Cardiolipin Ab IgM <12 SEE BELOW Charleen-1 Antibody 2020-09-22 Charleen-1 Antibody <1.0 Lupus Anticoagulant Eval w Reflex 2020-09-22 Lupus Anticoagulant Eval. REPORT PTT-LA Screen 40 SEE BELOW PTT-LA REPORT Additional Testing REPORT dRVVT Screen 44 SEE BELOW dRVVT REPORT dRVVT Mix Interpretation REPORT Parvovirus B19 Antibodies (I gG, IgM) 2020-09-22 Parvovirus Ab B19, IgG 6.0 SEE B ELOW Parvovirus Ab B19, IgM 0.2 SEE B ELOW Sjogren's Antibodies (SS-A,SS-B) 2020-09-22 Sjogren's Antibody (SS-A) <1.0 Sjogren's Antibody (SS-B) <1.0 Cardiolipin Ab IgG,IgM 2020-09-22 Cardiolipin Ab IgG <14 SEE BELOW Cardiolipin Ab IgM [address] ABDOMEN AND PELVIS W/CON [id number] 2020-07-30 HIV 1/2 Antigen/Antibody, 4t h Generation with Reflexes 2020-07-30 HIV Ag/Ab, 4th Generation Non-reactive No n-reacti Anti-Nuclear Antibody Screen (TYRESE) 2020-07-30 TYRESE Screen, IFA Negative Negative Ferritin 2020-07-30 Ferritin 103.00 17.90-464. B.Burgdorferi Ab IgG,IgM Western Blot (Lyme) 2020-07-30 Lyme Disease Ab IgG, WB Negative Nega tive Lyme Disase 18 KD IgG Nonreactive Lyme Disease 23 KD IgG Nonreactive Lyme Disease 28 KD IgG Nonreactive Lyme Disease 30 KD IgG Nonreactive Lyme Disease 39 KD IgG Nonreactive Lyme Disease 41 KD IgG Reactive Lyme Disease 45 KD IgG Nonreactive Lyme Disease 58 KD IgG Nonreactive Lyme Disease 66 KD IgG Nonreactive Lyme Disease 93 KD IgG Nonreactive Lyme Disease Ab IgM, WB Negative Nega tive Lyme Disease 23 KD IgM Nonreactive Lyme Disease 39 KD IgM Nonreactive Lyme Disease 41 KD IgM Nonreactive Rheumatoid Factor ([facility]) 2020-07-30 Rheumatoid Factor <14 SEE BELOW Sedimentation Rate 2020-07-30 ESR 3 <=20 Test [facility] Uric Acid, Serum 2020-07-30 Uric Acid 7.3 3.5-8.5 Test Site [facility] CBC AUTO DIFF (REFLEX TO MANUAL) 2020-07-30 WBC 5.58 4.80-10.80 RBC 4.69 4.60-6.20 HGB 15.7 14.0-18.0 HCT 43.1 42.0-52.0 MCV 91.9 80.0-94.0 MCH 33.5 27.0-31.0 MCHC 36.4 32.0-36.0 PLT 149.0 150.0-450. RDW-CV 12.1 9.9-14.5 ABS NEUT 3.6 1.8-8.6 ABS LYMPH 1.4 0.5-5.4 ABS MONO 0.4 0.0-1.3 ABS EOS 0.1 0.0-0.8 ABS BASO 0.0 0.0-0.3 ABS IG 0.02 0.00-0.10 NEUT % 65.10 37.00-80.0 LYMPH % 25.30 10.00-50.0 MONO % 7.70 0.01-12.00 EOS % 1.10 0.01-7.00 BASO % 0.40 0.01-2.50 IG% 0.4 0.0-1.0 RBC Morph. NORMAL RBC Incl. WBC Morph NORMAL PLT Est. NORMAL PLT Morph NORMAL Test Site [facility] Cyclic Citrullinated Peptide IgG (AntiCCP) 2020-07-30 CCP Antibody IgG <16 SEE BELOW Comprehensive Metabolic Panel(CMP) 2020-07-30 Glucose 101 65-100 BUN 21 7-23 Creatinine 1.10 0.66-1.25 BUN/Creat 19.1 7.0-25.0 Sodium 140 137-145 Potassium 5.1 3.6-5.0 Chloride 99 98-107 CO2 31 22-30 Anion Gap 10.0 5.0-15.0 Calcium 10.0 8.4-10.6 Tot.Prot. 7.3 6.3-8.2 Albumin 4.8 2.6-5.2 A/G Ratio 1.9 1.1-1.8 Alk Phos 74 38-126 AST 41 15-40 ALT 69 <=49 Bilirubin 1.5 0.2-1.3 eGFR >=60 >=60 Comment The MDRD study equat ion has not been validated in children < 18 yrs and pts. If , multiply result by 1.21. Test Site [facility] Thyroid Stimulating Hormone (TSH) 2020-07-30 TSH 2.620 0.500-4.70 Lipid Profile 2020-07-30 Cholestero 173 <=200 Trig. 314 <=150 HDL 41 >=40 LDL 69.2 <=130.0 Card.Risk 4.22 <=4.97 Rel.Risk 0.85 <=1.00 Interpretation Reference Range abov e is optimal for patients with minimal risk factors. The target ranges for patients of higher risk may vary. Test Site [facility] Hemoglobin A1c 2020-07-30 Hgb A1c 4.9 4.5-6.1 Calculated Mean 77 69-123 Comment Hgb A1c: Normal rang e 4.5 - 6.1% Diabetic levels: Therapeutic goal < 7% Re-evaluate therapy >8% Calculated mean glucose therapeutic goal < 150 mg/dl CRP, High Sensitivity 2020-07-30 HsCRP 0.83 <=3.00 Interpretation AHA/CDC Guidelines f or interpretation: LOW risk <1.0 AVERAGE risk 1.0 - 3.0 HIGH risk 3.1 - 10.0 INDETERMINANT result >10.0 Persistent hsCRP elevations may represent non-cardiovascular inflammation. SARS-CoV-2 Molecular Report 2020-06-30 NEGATIVE Signed out at: [facility]. - [facility] - 06/30/2020 (Location - Patholog ist - Date) Electronically tc d. Technical preparation performed at [employer] [address] [place] [address], Judit Kerr M.D., Shipmaster Professional service s provided by [employer] [address] [place] [address], Judit Kerr M.D., Shipmaster [id number] ICD9 Codes: CPT Codes: [id number]-PCR (Drive Thru Testing) 2020-06-30 SARS CoV 2 RNA Negative Negative COVID19 More Info A Grocery Supervisor Medi ated Amplification (TMA) Test. A molecular test that is related to a PCR test. The Fusion Antibodies SARS-CoV-2 assay is CE-marked and it is also approved/authorized in the following geographies: [place], [place], [place], [place], and [place]. Comment Refer to the Referen ce Lab report in [facility] COVID19 loc method Collection Site: [place], [place] [facility] [place] Test Method: Grocery Supervisor Mediated Amplification (TMA). A molecular test that is related to a PCR test. FDA Approved EUA, Aptima SARS-CoV-2 assay Test instrument: [employer] by [employer]. NVZA-CtO-3-PCR (Drive Thru Testing) 2020-04-01 SARS CoV 2 RNA Negative Negative Comment Refer to the Referen ce Lab report in [facility] COVID19 loc method Collection Site: [place], [place] [facility] [place] Test Method: FDA Approved EUA, RT-PCR Test instrument: [employer]io Fusion by [employer]. SARS-CoV-2 Molecular Report 2020-04-01 NEGATIVE Signed out at: [facility]. - [facility] - 04/02/2020 (Location - Patholog ist - Date) Electronically tc d. Technical preparation performed at [employer] [address] [place] [address],CLIA # [id number] Judit Kerr M.D., Shipmaster Professional service s provided by [employer] [address] [place] [address],CLIA # [id number] Judit Kerr M.D., Shipmaster [id number] ICD9 Codes: CPT Codes: Stress Test 99094 2020-01-14 Comprehensive Metabolic Panel(CMP) 2019-11-21 Glucose 108 65-100 BUN 17 7-23 Creatinine 0.91 0.66-1.25 BUN/Creat 18.7 7.0-25.0 Sodium 137 137-145 Potassium 4.4 3.6-5.0 Chloride 101 98-107 CO2 27 22-30 Anion Gap 9.0 5.0-15.0 Calcium 9.9 8.4-10.6 Tot.Prot. 7.4 6.3-8.2 Albumin 5.0 2.6-5.2 A/G Ratio 2.1 1.1-1.8 Alk Phos 63 38-126 AST 46 15-40 ALT 71 <=49 Bilirubin 1.1 0.2-1.3 eGFR >=60 >=60 Comment The MDRD study equat ion has not been validated in children < 18 yrs and pts. If , multiply result by 1.21. Test Site [facility] HIV 1/2 Antibody w/Reflex 2019-11-21 A-HIV 1/2 NEGATIVE NEGATIVE RPR ([facility]) 2019-11-21 RPR Non-Reactive Non-Reacti Hepatitis C Virus Ab (AHCV) 2019-11-21 HCV NEGATIVE NEGATIVE Chlamydia, N. Gonorrhoeae (Aptima) Urine 2019-11-21 Chlamydia Trachomatis RNA,TMA Not Detected Not Detect Neisseria Gonorrhoeae RNA, TMA Not Detected Not Detect Surgical Pathology Order Rcvd 2019-11-13 Surg.Date 11/12/2019 PreOp Dx Spec A swab Spec B Spec C Spec D Spec E Case Number swab Final Report See Reference Report Path Report Comment This is not the diag nostic report, please see separate Pathology Report. Chlamydia/Gonorrhea Only (No Pap) 2019-11-12 Gonorrhea/Chlamydia Results: Neisseria gonorrhoeae not detected Chlamydia trachomatis not detected REFERENCE RANGE: Chl amydia trachomatis not detected REFERENCE RANGE: Nei sseria gonorrhoeae not detected APTIMA COMBO 2 ASSAY ON THE Lively DTS/PANTHER SYSTEM IS A TARGET AMPLIFICATION NUCLEI C ACID PROBE TEST THAT UTILIZES TARGET CAPTURE FOR IN VITRO QUALITATIVE DE TECTION AND DIFFERENTIATION OF RIBOSOMAL RNA FROM CHLAMYDIA TRACHOMATI S (CT) AND/OR NEISSERIA GONORRHOEAE (NG). THE TEST(S) WERE VALIDATED AND ITS APPROPRIATE PERFORMANCE CHARACTERISTICS DETERMINED BY THE REPORTING LABORATORY . THIS LABORATORY IS CERTIFIED UNDER THE CLIA-88 QUALIFIED TO PERFORM HIGH COMPLEXITY CLINICAL LABORATORY TESTING. Signed out at: [facility]. - [facility]OME[facility]) - 11/15/2019 (Location - Pathologist - Date) Electronically tc french Technical preparation performed at [facility] [employer] [address] [place] [address], Judit Kerr M.D., Shipmaster Professional service s provided by [employer] [address] [place] [address], [facility], Judit Kerr M.D., Shipmaster Chart Summary 11/12/2019 Chlamydia trachomatis not detected , Neisseria gonorrhoeae not detected [id number] ICD9 Codes: CPT Codes: 29345e7, [id number] Comprehensive Metabolic Panel(CMP) 2019-05-13 Glucose CANC 65-100 BUN CANC 7-23 Creatinine CANC 0.66-1.25 BUN/Creat CANC 7.0-25.0 Sodium CANC 137-145 Potassium CANC 3.6-5.0 Chloride CANC 98-107 CO2 CANC 22-30 Anion Gap CANC 5.0-15.0 Calcium CANC 8.4-10.6 Tot.Prot. CANC 6.3-8.2 Albumin CANC 2.6-5.2 A/G Ratio CANC 1.1-1.8 Alk Phos CANC 38-126 AST CANC 15-40 ALT CANC <=56 Bilirubin CANC 0.2-1.3 eGFR CANC >=60 Comment The MDRD study equat ion has not been validated in children < 18 yrs and pts. If , multiply result by 1.21. Test Site [facility] Comprehensive Metabolic Panel(CMP) 2019-05-13 Glucose 95 65-100 BUN 23 7-23 Creatinine 0.96 0.66-1.25 BUN/Creat 24.0 7.0-25.0 Sodium 138 137-145 Potassium 4.3 3.6-5.0 Chloride 102 98-107 CO2 24 22-30 Anion Gap 12.0 5.0-15.0 Calcium 9.4 8.4-10.6 Tot.Prot. 7.2 6.3-8.2 Albumin 4.5 2.6-5.2 A/G Ratio 1.7 1.1-1.8 Alk Phos 64 38-126 AST 46 15-40 ALT 64 <=56 Bilirubin 0.9 0.2-1.3 eGFR >=60 >=60 Comment The MDRD study equat ion has not been validated in children < 18 yrs and pts. If , multiply result by 1.21. Test Site [facility] HIV 1/2 Antibody w/Reflex 2019-05-13 A-HIV 1/2 NEGATIVE NEGATIVE Lipid Profile 2019-05-13 Cholestero 142 <=200 Trig. 245 <=150 HDL 36 >=40 LDL 57.0 <=130.0 Card.Risk 3.94 <=4.97 Rel.Risk 0.79 <=1.00 Interpretation Reference Range abov e is optimal for patients with minimal risk factors. The target ranges for patients of higher risk may vary. Test Site [facility] RPR ([facility]) 2018-11-12 RPR Screen Nonreactive Nonreactiv Additional Testing (RPR Titer) REPORT Progressive FTA-ABS REPORT Comprehensive Metabolic Panel(CMP) 2018-11-12 Glucose 98 65-100 BUN 16 7-23 Creatinine 0.87 0.66-1.25 BUN/Creat 18.4 7.0-25.0 Sodium 138 137-145 Potassium 4.2 3.6-5.0 Chloride 102 98-107 CO2 27 22-30 Anion Gap 9.0 5.0-15.0 Calcium 9.4 8.4-10.6 Tot.Prot. 6.6 6.3-8.2 Albumin 4.4 2.6-5.2 A/G Ratio 2.0 1.1-1.8 Alk Phos 82 38-126 AST 42 15-40 ALT 58 <=56 Bilirubin 0.7 0.2-1.3 eGFR >=60 >=60 Comment The MDRD study equat ion has not been validated in children < 18 yrs and pts. If , multiply result by 1.21. Test Site [facility] Hepatitis C Virus Ab (AHCV) 2018-11-12 HCV NEGATIVE NEGATIVE HIV 1/2 Antibody w/Reflex 2018-11-12 A-HIV 1/2 NEGATIVE NEGATIVE POC Rapid Influenza Test Flu A neg Flu B neg Flexible Sigmoidoscopy 2018-08-02 CT ABDOMEN AND PELVIS W/CON [id number] 2018-07-20 Lipid Profile 2018-04-24 Cholestero 179 <=200 Trig. 203 <=150 HDL 43 >=40 LDL 95.4 <=130.0 Card.Risk 4.16 <=4.97 Rel.Risk 0.84 <=1.00 Interpretation Reference Range abov e is optimal for patients with minimal risk factors. The target ranges for patients of higher risk may vary. Test Site [facility] CHEST CALCIUM SCORING [id number] 2018-04-06 EBCT Coronary calcium score 2018-04-06 CBC w/Manual Diff 2018-03-08 WBC 5.42 4.80-10.80 RBC 4.75 4.60-6.20 HGB 16.4 14.0-18.0 HCT 43.8 42.0-52.0 MCV 92.2 80.0-94.0 MCH 34.5 27.0-31.0 MCHC 37.4 32.0-36.0 PLT 154.0 150.0-450. RDW-CV 12.2 9.9-14.5 ABS NEUT 3.2 1.8-8.6 % Segs 53 37-80 % Lymphs 30 10-50 % AtyLymph 9 % Boyle 6 <=12 % Eos 2 <=7 % Baso <=3 % Bands <=5 % Thurman % Myelos % Promyelo % Blasts NRBC Megakaryoc RBC Morph. Normal NORMAL RBC Incl. WBC Morph NORMAL PLT Est. Normal NORMAL PLT Morph See Comments NORMAL Test Site [facility] Comprehensive Metabolic Panel(CMP) 2018-03-08 Glucose 111 65-100 BUN 20 7-23 Creatinine 0.95 0.66-1.25 BUN/Creat 21.1 7.0-25.0 Sodium 138 137-145 Potassium 4.6 3.6-5.0 Chloride 104 98-107 CO2 24 22-30 Anion Gap 10.0 5.0-15.0 Calcium 9.6 8.4-10.6 Tot.Prot. 7.0 6.3-8.2 Albumin 4.6 2.6-5.2 A/G Ratio 1.9 1.1-1.8 Alk Phos 64 38-126 AST 34 15-40 ALT 47 <=56 Bilirubin 1.6 0.2-1.3 eGFR >=60 >=60 Comment The MDRD study equat ion has not been validated in children < 18 yrs and pts. If , multiply result by 1.21. Test Site [facility] Hepatitis C Virus Ab (AHCV) 2018-03-08 HCV NEGATIVE NEGATIVE HIV 1/2 Antibody w/Reflex 2018-03-08 A-HIV 1/2 NEGATIVE NEGATIVE MRI PELVIS WO & W/BRO [id number] 2018-01-25 MRI ABDOMEN WO and W/BRO [id number] 2018-01-25 CHEST PA AND LAT (2) VIEWS [id number] 2017-08-19 HIV 1+2 Antibody w Reflex 2017-04-28 A-HIV 1/2 NEGATIVE NEGATIVE HIV 1+2 Antibody w Reflex 2017-02-13 A-HIV 1/2 NEGATIVE NEGATIVE Cardiac Profile 3 2017-02-13 Cholestero 121 <=200 Trig. 131 <=150 HDL 35 >=40 LDL 59.8 <=130.0 Card.Risk 3.46 <=4.97 Rel.Risk 0.70 <=1.00 HIV 1+2 Antibody w Reflex 2016-10-31 A-HIV 1/2 NEGATIVE NEGATIVE CK 2016-10-26 CK 103 55-170 Test Site [facility] Lipid Profile 2016-10-26 Cholestero 169 <=200 Trig. 235 <=150 HDL 43 >=40 LDL 79.0 <=130.0 Card.Risk 3.93 <=4.97 Rel.Risk 0.79 <=1.00 CBC Auto Diff (Reflex To Manual) 2016-10-26 WBC 4.65 4.80-10.80 RBC 4.94 4.60-6.20 HGB 15.9 14.0-18.0 HCT 45.2 42.0-52.0 MCV 91.5 80.0-94.0 MCH 32.2 27.0-31.0 MCHC 35.2 32.0-36.0 PLT 147.0 150.0-450. RDW-CV 12.4 9.9-14.5 ABS NEUT 2.9 1.8-8.6 ABS LYMPH 1.3 0.5-5.4 ABS MONO 0.4 0.0-1.3 ABS EOS 0.1 0.0-0.8 ABS BASO 0.0 0.0-0.3 ABS IG 0.02 0.00-0.10 NEUT % 62.00 37.00-80.0 LYMPH % 27.10 10.00-50.0 MONO % 8.40 0.01-12.00 EOS % 1.90 0.01-7.00 BASO % 0.20 0.01-2.50 IG% 0.4 0.0-1.0 RBC Morph. NORMAL RBC Incl. WBC Morph NORMAL PLT Est. NORMAL PLT Morph NORMAL Test Site [facility] Comprehensive Metabolic Panel 2016-10-26 Glucose 102 65-100 BUN 17 7-23 Creatinine 0.87 0.66-1.25 BUN/Creat 19.5 7.0-25.0 Sodium 140 137-145 Potassium 4.9 3.6-5.0 Chloride 101 98-107 CO2 28 22-30 Anion Gap 11.0 5.0-15.0 Calcium 9.6 8.4-10.6 Tot.Prot. 7.3 6.3-8.2 Albumin 4.6 2.6-5.2 A/G Ratio 1.7 1.1-1.8 Alk Phos 78 38-126 AST 52 15-40 ALT 89 <=56 Bilirubin 0.9 0.2-1.3 eGFR >=60 >=60 Comment The MDRD study equat ion has not been validated in children under 18 years and women. If patient is , multiply reported result by 1.21. Test Site [facility] Cardiac Profile 3 2016-05-06 Cholestero 157 <=200 Trig. 163 <=150 HDL 43 >=40 LDL 81.4 <=130.0 Card.Risk 3.65 <=4.97 Rel.Risk 0.73 <=1.00 HIV 1+2 Antibody w Reflex 2016-05-06 A-HIV 1/2 NEGATIVE NEGATIVE Comprehensive Metabolic Panel 2015-11-16 Glucose 87 65-100 BUN 25 7-23 Creatinine 0.92 0.66-1.25 BUN/Creat 27.2 7.0-25.0 Sodium 140 137-145 Potassium 3.9 3.6-5.0 Chloride 101 98-107 CO2 27 22-30 Anion Gap 12.0 5.0-15.0 Calcium 9.0 8.4-10.6 Tot.Prot. 6.5 6.3-8.2 Albumin 4.2 2.6-5.2 A/G Ratio 1.8 1.1-1.8 Alk Phos 44 38-126 AST 25 15-40 ALT 30 <=56 Bilirubin 0.5 0.2-1.3 eGFR >=60 >=60 Comment The MDRD study equat ion has not been validated in children under 18 years and women. If patient is , multiply reported result by 1.21. Test Site [facility] HIV 1+2 Antibody w Reflex 2015-11-16 A-HIV 1/2 NEGATIVE NEGATIVE Comprehensive Metabolic Panel 2015-09-10 Glucose 98 65-100 BUN 19 7-23 Creatinine 1.01 0.66-1.25 BUN/Creat 18.8 7.0-25.0 Sodium 139 137-145 Potassium 4.9 3.6-5.0 Chloride 102 98-107 CO2 29 22-30 Anion Gap 8.0 5.0-15.0 Calcium 9.6 8.4-10.6 Tot.Prot. 6.7 6.3-8.2 Albumin 4.6 2.6-5.2 A/G Ratio 2.2 1.1-1.8 Alk Phos 48 38-126 AST 34 15-40 ALT 48 <=56 Bilirubin 0.9 0.2-1.3 eGFR >=60 >=60 Comment The MDRD study equat ion has not been validated in children under 18 years and women. If patient is , multiply reported result by 1.21. Test Site [facility] CBC Auto Diff (Reflex To Manual) 2015-08-13 WBC 4.84 4.80-10.80 HGB 15.5 14.0-18.0 HCT 43.1 42.0-52.0 MCV 91.5 80.0-94.0 MCH 32.9 27.0-31.0 MCHC 36.0 32.0-36.0 PLT 175.0 150.0-450. RDW-CV 12.0 9.9-14.5 ABS NEUT 2.6 1.8-8.6 ABS LYMPH 1.6 0.5-5.4 ABS MONO 0.5 0.0-1.3 ABS EOS 0.1 0.0-0.8 ABS BASO 0.0 0.0-0.3 ABS IG 0.01 0.00-0.10 NEUT % 53.90 37.00-80.0 LYMPH % 33.90 10.00-50.0 MONO % 9.90 0.01-12.00 EOS % 1.70 0.01-7.00 BASO % 0.40 0.01-2.50 IG% 0.2 0.0-1.0 RBC Morph. NORMAL RBC Incl. WBC Morph NORMAL PLT Est. NORMAL PLT Morph NORMAL Man.Diff N/I REFLEXED Test Site [facility] Comprehensive Metabolic Panel 2015-08-13 Glucose 95 65-100 BUN 24 7-23 Creatinine 1.17 0.66-1.25 BUN/Creat 20.5 7.0-25.0 Sodium 139 137-145 Potassium 4.7 3.6-5.0 Chloride 98 98-107 CO2 30 22-30 Anion Gap 11.0 5.0-15.0 Calcium 9.7 8.4-10.6 Tot.Prot. 7.4 6.3-8.2 Albumin 4.9 2.6-5.2 A/G Ratio 2.0 1.1-1.8 Alk Phos 51 38-126 AST 58 <=40 ALT 132 <=56 Bilirubin 1.0 0.2-1.3 eGFR >=60 >=60 Comment The MDRD study equat ion has not been validated in children under 18 years and women. If patient is , multiply reported result by 1.21. Test Site [facility] HIV 1+2 Antibody w Reflex 2015-08-13 A-HIV 1/2 NEGATIVE NEGATIVE Basic Metabolic Panel 2015-05-07 Glucose 90 65-100 BUN 24 7-23 Creatinine 1.09 0.66-1.25 BUN/Creat 22.0 7.0-25.0 Sodium 139 137-145 Potassium 4.7 3.6-5.0 Chloride 99 98-107 CO2 27 22-30 Anion Gap 13.0 5.0-15.0 Calcium 9.8 8.4-10.6 eGFR >=60 >=60 Comment The MDRD study equat ion has not been validated in children under 18 years and women. If patient is , multiply reported result by 1.21. Test Site [facility] HIV 1+2 Antibody w Reflex 2015-05-07 A-HIV 1/2 NEGATIVE NEGATIVE Cardiac Profile 2 2015-05-07 Cholestero 166 <=200 Trig. 124 <=150 HDL 47 >=40 LDL 94.2 <=130.0 Card.Risk 3.53 <=4.97 Rel.Risk 0.71 <=1.00 Cardiac Profile 2 2015-05-07 Cholestero 166 <=200 Trig. 124 <=150 HDL 47 >=40 LDL 94.2 <=130.0 Card.Risk 3.53 <=4.97 Rel.Risk 0.71 <=1.00 Comprehensive Metabolic Panel 2015-02-06 Glucose 101 65-100 BUN 20 7-23 Creatinine 1.00 0.66-1.25 BUN/Creat 20.0 7.0-25.0 Sodium 139 137-145 Potassium 4.6 3.6-5.0 Chloride 102 98-107 CO2 27 22-30 Anion Gap 10.0 5.0-15.0 Calcium 9.7 8.4-10.6 Tot.Prot. 7.0 6.3-8.2 Albumin 4.4 2.6-5.2 A/G Ratio 1.7 1.1-1.8 Alk Phos 45 38-126 AST 31 <=40 ALT 39 <=56 Bilirubin 0.8 0.2-1.3 eGFR >=60 >=60 Comment The MDRD study equat ion has not been validated in children under 18 years and women. If patient is , multiply reported result by 1.21. Test Site [facility] HIV 1+2 Antibody w Reflex 2015-02-06 A-HIV 1/2 NEGATIVE NEGATIVE Urinalysis, Routine 2014-11-12 Color Yellow Clarity Clear Glucose Negative NEGATIVE Clinitest Not Indicated NEGATIVE Bilirubin Negative NEGATIVE Ictotest Not Indicated NEGATIVE Ketones Negative NEGATIVE SG 1.025 1.005-1.03 pH 5.5 5.0-9.0 Protein Negative NEGATIVE Urobil. 0.2 0.2-1.0 Nitrite Negative NEGATIVE Blood Negative NEGATIVE Leukocytes Negative NEGATIVE UA/Micro N/I N/I Color Inf. NO NO Test [facility] Lipid Profile 2014-11-12 Cholestero 225 <=200 Trig. 223 <=150 HDL 50 >=40 LDL 130.4 <=130.0 Card.Risk 4.50 <=4.97 Rel.Risk 0.91 <=1.00 Comprehensive Metabolic Panel 2014-11-12 Glucose 93 65-100 BUN 24 7-23 Creatinine 1.12 0.66-1.25 BUN/Creat 21.4 7.0-25.0 Sodium 138 137-145 Potassium 4.4 3.6-5.0 Chloride 101 98-107 CO2 28 22-30 Anion Gap 9.0 5.0-15.0 Calcium 9.4 8.4-10.6 Tot.Prot. 6.8 6.3-8.2 Albumin 4.5 2.6-5.2 A/G Ratio 2.0 1.1-1.8 Alk Phos 47 38-126 AST 26 <=40 ALT 29 <=56 Bilirubin 0.7 0.2-1.3 eGFR >=60 >=60 Comment The MDRD study equat ion has not been validated in children under 18 years and women. If patient is , multiply reported result by 1.21. Test Site [facility] Thyroid Stimulating Hormone (TSH) 2014-11-12 TSH 2.670 0.500-4.70 Hemoglobin A1c 2014-11-12 Hgb A1c 4.9 4.5-6.1 Calculated Mean 77 69-123 Comment Hgb A1c: Normal rang e 4.5 - 6.1% Diabetic levels: Therapeutic goal < 7% Re-evaluate therapy >8% Calculated mean glucose therapeutic goal < 150 mg/dl Colonoscopy Abdominal Ultrasound hep b v dna copies log <20 Hepatitis Panel HAV IgM Hep A Antibodies neg Hep B Core Ab reactive Hep B Surf Ag neg Hep C AB neg Iron, Ferritin, TIBC FERRITIN 204 IRON 151 Iron Binding 349 TIBC transf sat lipid with ast ALT ALT AST CK HDL HDL 52 LDL 148 Risk Total Chol 237 Triglycerides 186 REASON FOR VISIT follow up, 1y f/u, 6 month f/u, annual, 6 mos f/u, GC/chlamydia throat and rectal swabs collected, Pt tolerated procedure well., * Hosp FU/ YH, right side facial numbness, Event Monitor, BP concerns,labs, in for BP check, b/p check ----NTJ, over the past couple months he has been getting elevated BP readings in the 150's, unusual for him, elevated b/p, f-u, follow up, increase statin/recheck labs, lab results, Rx refill of PrEP Rx, Clinical Advice, * ER [facility] *diverticulitis*, Flu shot given, follow up, f/u, f/u r/s from 01/07, congestion, 1y f/u lmom to cb to r/s, MRI, back pain, Update [employer] Demographics, MRI Denied ?, MRI, req MRI order, ePrescription CancelRx response, refilled ART per ET, refilled ART per ET, labs, follow up, f/u, STD screen, swabs collected, med refill, Needs referral, prednisone, pain in shoulder, looking for MRI, labs, f-u, 4 mo f/u, covid test, Covid test, 6 mos, labs, October f/u with labs, October f/u with labs, R/S today's appt to October f/u w/ labs, +covid, Throat and rectal G+C, Covid+, cancelled 10/30, COVID + needs albuterol, polyarthritis~, labs ?, labs review, question, FOLLOW UP, f/u Jul 2020, Update Demographics - Additional Info, Update Demographics - Additional Info, Update Demographics - Personal Info, f/u Jul 2020, Labs not done, ARM PIT PAIN, Follow up, Wants covid test, 1 yr, Update Demographics - Personal Info, Update Demographics- Personal Info, covid test, annual, pain concerns; [place] pt., concerns, refilled Rx per TE last note,follow up, 6m f/u, specimen collection throat and rectal for GC chlamydia, rectal and throat specimen collection for chlamydia amd gonorrhea, refilled Rx per ET, LMOM TO C/B TO RIA swabs, 6m f/u, congestion persistent, re- sent Rx, Rx sent per ET, 12 m, 12 m, Refills, 6 mo f/u w/labs, annual, sore th roat, congestion, cough, ntj pt - fever x 3 days, Refills, atorvastatin rf, Refills, PrEP f/u w/labs prior, discuss issue, Wants shingrix, atorvastatin RF, 6 month f/u, refill, * Transition from ____AH, 6 month f/u, labs and f/u w/EAT, refill omeprazole, refill omeprazole, 6m f/u PREP, Refills, Medrequest, correcting provider on med, Rx request, refill, EMR-Vinicio, FYI only, FYI referral, sick since sun; URI, Refills, pain on L side, gotten worse over the weekend, est care, mrr Insurance Providers Health Insurance Type Health Plan Insurance Address Health Plan Insurance Phone Health Plan Insurance Name Health Plan Coverage Dates Member ID Patient Relationship to Subscriber Patient Address Patient Phone Patient Name Patient Date of Subscriber ID Subscriber Name Subscriber Date of Group Catarina ARSEN WALTON [address] [facility] [address] A[place] self Shailesh Pink [id number]
[2023-01-09 10:19] LABS: Alanine Aminotransferase 55 U/L (0-40); Alkaline Phosphatase 81 U/L (39-117); Anion Gap 16 (12-20); Aspartate Amino Transferase 33 U/L (5-37); Bilirubin Total 1.7 mg/dL (0.0-1.0); Blood Urea Nitrogen 21 mg/dL (9-16); Carbon Dioxide 25 mmol/L (22-29); Chloride 101 mmol/L (96-108); Estimated Glomerular Filt Rate > 60; Glucose Random 118 mg/dL (60-115); Potassium 4.1 mmol/L (3.3-5.1); Sodium 138 mmol/L (135-145); Total Protein 7.7 g/dL (6.5-8.0)
--- NOTE | 2023-01-09 10:24 | ED_ITS ---
HPI - Chest Pain General Chief Complaint: Chest Pain Stated Complaint: lightheaded, andrzejuea Time Seen by Provider: 01/09/23 10:00 Source: patient Mode of arrival: ambulatory Limitations: no limitations History of Present Illness HPI narrative: 57-year-old male with history of hypertension, hyperlipidemia, intermittent right-sided facial numbness with negative MRIs in the past presents to the ER for evaluation of acute onset of right ring finger numbness, tingling along with purple coloration that he noticed 30 minutes ago while driving. Patient is from [place] and was driving to [place] when he noticed numbness and tingling in his right ring finger, it radiated proximally. When he looked at the finger it was purple and cool. All of his fingers were cool. He became very nervous, was hyperventilating and developed shortness of breath and chest pain. Patient came directly to the ER for further evaluation. On arrival to the ER at the numbness and tingling were starting to resolve. The purple coloration remained. Denies history of similar episodes. He is not on blood thinners. He denies pain in the finger. No trauma. No swelling. He was able to take his ring finger off without issue. MD complaint: chest pain and other (Left ring finger numbness, bruising) Onset (ago): minute(s) Timing of current episode: now resolved Prior episodes: No Onset: other (While driving 30 minutes ago) Pain location: other (Entire chest ) Pain radiation: none Severity: moderate Quality: tightness Relieving factors: rest Exacerbating factors: stress Treatment prior to arrival: none Risk Factors Coronary artery disease risk factors: hyperlipidemia and hypertension Thoracic aortic dissection risk factors: none Related Data Allergies Allergy/AdvReac Type Severity Reaction Status Date / Time No Known Allergies Allergy Verified 01/09/23 11:29 Review of Systems Review of Systems: Yes all other systems are reviewed and are negative [facility] Social History Social History Advance Directives: No Advance Directives Information Provided: No Physical Exam Vital Signs: Vital Signs: Last Vital Signs Temp 98.2 F 01/09/23 11:08 Pulse 68 01/09/23 12:07 Resp 18 01/09/23 12:07 BP 128/85 01/09/23 12:07 Pulse Ox 98 01/09/23 12:07 O2 Del Method Room Air 01/09/23 12:07 BMI result Body Mass Index 28.6 Appearance: Alert. Oriented X3. No acute distress. Head: normocephalic, atraumatic. Eyes: Pupils equal, round and reactive to light. ENT: Pharynx normal. No tonsillar swelling or exudate. Neck: Normal inspection. Neck supple. CVS: Normal heart rate and rhythm. Pulses normal. Respiratory: No respiratory distress. Breath sounds normal. Abdomen: Soft and nontender. +BS x4 Skin: Skin warm and dry. Normal skin color. Normal skin turgor. No rashes. Extremities: No lower extremity edema. No joint swelling. The left 4th digit with ecchymosis on the palmar aspect of the finger to the D IP. Mild tenderness of the D IP. Normal range of motion of the digit. Slightly decreased sensation of the digit. Normal cap refill in all 5 digits. 2+ radial pulse. Other fingers have normal coloration. Neuro/psych: Oriented X 3. No motor deficit. minor, resolving sensory deficit of the left ring and 5th digit.. CN II-XII intact. Normal speech and cognition. Medical Decision Making Medical Decision Making [facility] Narrative: 57-year-old male with history of HTN, HLD who presents to the ER for evaluation of acute onset of left ring finger bruising, numbness and tingling. This was followed by panic, hyperventilation, shortness of breath and chest pain. Most likely etiology of those symptoms includes anxiety. His EKG and lab workup was unremarkable. He was initially hypertensive on arrival but once he calmed down his blood pressure improved significantly. He has been compliant with his blood pressure medications. During his time in the emergency department his numbness and tingling in his finger has completely resolved. The bruising on the anterior aspect of the finger remains. Most likely due to ecchymosis/superficial vascular injury. Possible Achenbach's syndrome. His symptoms are not consistent stroke. At this time is stable for discharge home with outpatient follow-up. Patient agrees with plan all questions were answer ed. Differential Diagnosis Differential Diagnoses: The differential diagnosis associated with the presentation includes TIA, CVA, Raynaud syndrome, traumatic bruising, anxiety attack, broken finger, carpal tunnel syndrome Lab Data [facility] Lab Attestation statement: I reviewed the patient's lab results. Unremarkable. 01/09/23 09:51 06/19/23 09:51 Labs: Lab Results 01/09/23 01/09/23 01/09/23 Range/Units 09:51 09:51 09:51 WBC 7.1 (4.8-10.8) X10*3/uL RBC 4.93 (4.60-5.80) X10*6/uL Hgb 16.6 (14.0-18.0) g/dl Hct 45.0 (42.0-52.0) % MCV 91.3 (80.0-98.0) fL MCH 33.7 H (27.0-33.0) pg MCHC 36.9 H (31.0-36.0) g/dl RDW 11.6 (11.0-16.0) % Plt Count 159 L (160-400) X10*3/uL MPV 10.2 (9.4-12.4) fL Immature Gran % (Auto) 0.4 (0.0-0.4) % Neut % (Auto) 65.1 (45-73) % Lymph % (Auto) 26.1 (20-40) % Jones % (Auto) 7.4 (2-11) % Eos % (Auto) 0.6 (0-4) % Baso % (Auto) 0.4 (0-2) % Lymph # (Auto) 1.8 (1.2-4.9) X10*3/uL Jones # (Auto) 0.5 (0.1-1.2) X10*3/uL Eos # (Auto) 0.0 (0.0-0.4) X10*3/uL Baso # (Auto) 0.0 (0.0-0.2) X10*3/uL Abs Immat Gran (auto) 0.03 (0.00-0.03) X10*3/uL Absolute Neuts (auto) 4.6 (2.0-8.3) x10*3/uL Absolute Nucleated RBC 0.000 (0.0-0.012) X10*3/uL Nucleated RBC % (auto) 0.0 (0.0-0.2) /100WBC Sodium 138 (135-145) mmol/L Potassium 4.1 (3.3-5.1) mmol/L Chloride 101 (96-108) mmol/L Carbon Dioxide 25 (22-29) mmol/L Anion Gap 16 (12-20) BUN 21 H (9-16) mg/dL Creatinine 1.02 (0.5-1.4) mg/dL Estim Creat Clear Calc 93.0 Estimated GFR > 60 Random Glucose 118 H (60-115) mg/dL Calcium 10.0 (8.4-10.2) mg/dL Total Bilirubin 1.7 H (0.0-1.0) mg/dL AST 33 (5-37) U/L ALT 55 H (0-40) U/L Alkaline Phosphatase 81 (39-117) U/L Troponin I High Sens < 2.7 (<3.5-35.0) ng/L Total Protein 7.7 (6.5-8.0) g/dL Albumin 5.0 (3.5-5.0) g/dL Independent Interpretation I performed an independent interpretation of an: EKG Interpretation: EKG with normal sinus rhythm, ventricular rate 83 beats per minute, normal QTC, normal MS interval, no ST segment elevations or depressions. Independent Historian Clinical information obtained from an independent historian. History obtained from or confirmed by: Spouse Chronic Conditions Patient?s care impacted by: Hypertension Critical Care Time Critical Care Time Critical Care Time: No Discharge Plan Discharge Clinical Impression: Superficial bruising of finger Patient Disposition: Home, Self-Care Instructions: Ecchymosis (ED) Additional Instructions: Your lab work & EKG were all unremarkable Follow-up with your doctor and your neurologist. If you develop new or worsening symptoms call 911 or come back to the ER for further evaluation.
[2023-01-09 10:43] LABS: Troponin-I High Sensitivity < 2.7 ng/L (<3.5-35.0)
[2023-01-09 11:08] VITALS: BP 129/84; PULSE 66; RESP 17; TEMP 36.8; O2SAT 96
[2023-01-09 11:10] VITALS: BP 129/84; PULSE 66; RESP 15; O2SAT 95
[2023-01-09 12:07] VITALS: BP 128/85; PULSE 68; RESP 18; O2SAT 98
== END 2023-01-09 12:22 | disposition home or self-care (01) ==
PROVIDERS: Emergency Provider Student in an Organized Health Care Education/Training Program
DX: S60.041A Contusion of right ring finger without damage to nail, initial encounter (principal); R07.89 Other chest pain; X58.XXXA Exposure to other specified factors, initial encounter; Y93.9 Activity, unspecified; Y92.89 Other specified places as the place of occurrence of the external cause; Y99.9 Unspecified external cause status; Z79.899 Other long term (current) drug therapy
CPT/HCPCS: 36415; 80053; 84484; 85025; 93005; 99283; 99285